=== PATIENT | male | born 2000 | race African-American/Black ===

== ENCOUNTER 2022-02-26 05:51 | Emergency (ER) | payer BC, OTHER ==
[2022-02-26] MEDS ORDERED: Ketorolac Tromethamine 30 MG/ML VIAL ONE (06:29)
== END 2022-02-26 07:20 | disposition home or self-care (01) ==
LOC: CSHERS 05:51
DX: J02.9 Acute pharyngitis, unspecified (principal)
CPT/HCPCS: 87081; 87430; 87804; 96372; 99283; J1885